=== PATIENT | female | born 1975 | race Two or more races ===

== ENCOUNTER 2024-03-03 07:49 | Outpatient (CLI) | payer OTHER ==
[~2024-03-03 07:49] MED LIST: ASPIRIN EC81 MG PO; JANUMET XR 50-1 EAC1 PO; LIPITOR20 MG PO; LOSARTAN POTASS50 MG PO; TOUJEO SOL300 UNIT/1 SUBCUTANEO
== END 2024-03-03 07:50 | disposition home or self-care (01) ==
LOC: NUCLEAR 07:49
DX: C85.10 Unspecified B-cell lymphoma, unspecified site (principal)

== ENCOUNTER 2024-10-15 07:31 | Outpatient (CLI) | payer OTHER | END 2024-10-15 07:36 | disposition home or self-care (01) | LOC: NUCLEAR 07:31 | PROVIDERS: ATTEND Internal Medicine Hematology & Oncology | DX: C85.10 Unspecified B-cell lymphoma, unspecified site (principal) ==